=== PATIENT | male | born 1960 | race Caucasian/White ===

== ENCOUNTER 2021-09-12 14:30 | Emergency (ER) | payer BC, OTHER ==
[2021-09-12 15:42] LABS: HEMOGLOBIN 15.8 gm/dl (14.0-17.5); RED BLOOD COUNT 5.39 M/UL (4.20-5.50)
[2021-09-12 16:07] LABS: BUN/CREATININE RATIO 15 (0-10)
== END 2021-09-12 20:22 | disposition short-term general hospital (02) ==
LOC: ER1 14:30
PROVIDERS: Physician Assistant
DX: K80.20 Calculus of gallbladder without cholecystitis without obstruction (principal); I11.9 Hypertensive heart disease without heart failure; F17.290 Nicotine dependence, other tobacco product, uncomplicated; Z79.82 Long term (current) use of aspirin; Z20.822 Contact with and (suspected) exposure to COVID-19
CPT/HCPCS: 71045; 80053; 81001; 82550; 82553; 83605; 83690; 84484; 85025; 87040; 93005; 96374; 96375; 96376; 99285; J1170; J2270; J2405; J2543; J2550; Q9967; U0002